=== PATIENT | female | born 1940 | race Caucasian/White ===

== ENCOUNTER 2020-07-08 11:42 | Inpatient (IN) ==
[2020-07-08] MEDS ORDERED: Famotidine 20 MG/2 ML VIAL IVP ONE (12:18)
[2020-07-08] MEDS ORDERED: Acetaminophen IV 1,000 MG/100 ML BAG IVPB ONE (12:18)
[2020-07-08] MEDS ORDERED: Ondansetron 4 MG/2 ML VIAL IVP PRN ×2 (12:19→18:21)
[2020-07-08] MEDS ORDERED: *HR* HYDROmorphone PF 0.5 MG/0.5 ML SYRINGE IVP PRN (12:19)
[2020-07-08] MEDS ORDERED: *HR* Labetalol 20 MG/4 ML SYRINGE IVP PRN (12:19)
[2020-07-08] MEDS ORDERED: cefOXitin 2,000 MG in Water for inj. (sterile) 20 ML IVP ONE (12:21)
[2020-07-08] MEDS ORDERED: Ringers Solution, Lactated 1,000 ML IVC SCH (12:30)
[2020-07-08] MEDS ORDERED: *HR* Propofol 200 MG/20 ML VIAL IVP ONE ×3 (13:15→13:52)
[2020-07-08] MEDS ORDERED: *HR* Rocuronium Bromide 50 MG/5 ML VIAL ONE (13:18)
[2020-07-08] MEDS ORDERED: Lidocaine -MPF 2% 2 ML VIAL ONE ×2 (13:18→13:53)
[2020-07-08] MEDS ORDERED: *HR* FentaNYL (PF) 100 MCG/2 ML VIAL ONE (13:51)
[2020-07-08] MEDS ORDERED: Ondansetron 4 MG/2 ML VIAL ONE (15:20)
[2020-07-08] MEDS ORDERED: Sugammadex Sodium 200 MG/2 ML VIAL IV ONE (16:53)
[2020-07-08] MEDS ORDERED: Naloxone 0.4 MG/ML INJ IVP PRN (18:21)
[2020-07-08] MEDS: Acetaminophen IV 1,000 MG/100 ML BAG IVPB SCH (19:00)
[2020-07-08] MEDS: 0.9 % Sodium Chloride 1,000 ML IVC SCH (19:00)
[2020-07-08] MEDS: Ketorolac 15 MG/ML VIAL IVP SCH (19:01)
[2020-07-08] MEDS: *HR* Heparin 5,000 UNIT/ML VIAL SQ SCH ×2 (19:01→19:32)
[2020-07-09] MEDS: Ketorolac 15 MG/ML VIAL IVP SCH ×5 (00:11→23:59)
[2020-07-09] MEDS: Acetaminophen IV 1,000 MG/100 ML BAG IVPB SCH ×5 (00:11→23:59)
[2020-07-09 02:24] LABS: Basophils % 0.1 %; Hematocrit 34.9 % (35.3-44.9); Hemoglobin 11.6 g/dL (11.5-15.4); Immature Granulocytes % 0.3 % (0-4); Lymphocytes # 1.1 K/mcL (0.6-4.6); Lymphocytes % 11.5 %; Mean Corpuscular HGB Conc 33.2 g/dL (31.6-35.5); Mean Corpuscular Hemoglobin 31.3 pg (28.0-33.3); Mean Corpuscular Volume 94.1 fL (83.0-100.0); Mean Platelet Volume 9.3 fL (9.4-12.4); Monocytes # 0.2 K/mcL (0.0-1.3); Monocytes % 2.1 %; Platelet Count 269 K/mcL (140-400); Red Blood Count 3.71 M/mcL (3.82-4.97); Red Cell Distribution Width 14.1 % (11.5-14.5); White Blood Count 9.3 K/mcL (4.3-11.1)
[2020-07-09 02:39] LABS: BUN/Creatinine Ratio 6 (6-26); Blood Urea Nitrogen 4 mg/dL (8-23); Carbon Dioxide 21 mEq/L (23-29); Chloride 102 mEq/L (98-107); Glucose 155 mg/dL (70-105); Osmolality,Calculated 274 (280-300); Potassium 3.6 mEq/L (3.5-5.1); Sodium 132 mEq/L (136-145); eGFR For African Americans > 60 (> 60); eGFR For Non-African Americans > 60 (> 60)
[2020-07-09] MEDS: *HR* Heparin 5,000 UNIT/ML VIAL SQ SCH ×2 (05:37→17:41)
[2020-07-09] MEDS: 0.9 % Sodium Chloride 1,000 ML IVC SCH (06:03)
[2020-07-09] MEDS: Pantoprazole 40 MG VIAL IVP SCH (11:57)
[2020-07-09] MEDS: amLODIPine 5 MG TABLET PO SCH (11:58)
[2020-07-09] MEDS: Acyclovir 200 MG CAPSULE PO SCH (20:09)
[2020-07-10] MEDS: Ketorolac 15 MG/ML VIAL IVP SCH ×2 (05:47→14:40)
[2020-07-10] MEDS: Acetaminophen IV 1,000 MG/100 ML BAG IVPB SCH ×2 (05:47→14:39)
[2020-07-10] MEDS: *HR* Heparin 5,000 UNIT/ML VIAL SQ SCH (05:48)
[2020-07-10 06:46] LABS: Basophils % 0.3 %; Eosinophils % 0.5 %; Hematocrit 30.4 % (35.3-44.9); Immature Granulocytes % 0.3 % (0-4); Lymphocytes # 2.6 K/mcL (0.6-4.6); Lymphocytes % 29.6 %; Mean Corpuscular HGB Conc 32.2 g/dL (31.6-35.5); Mean Corpuscular Hemoglobin 30.2 pg (28.0-33.3); Mean Corpuscular Volume 93.5 fL (83.0-100.0); Mean Platelet Volume 9.4 fL (9.4-12.4); Monocytes # 0.6 K/mcL (0.0-1.3); Monocytes % 6.9 %; Neutrophils # 5.4 K/mcL (1.6-8.9); Platelet Count 258 K/mcL (140-400); Red Blood Count 3.25 M/mcL (3.82-4.97); Red Cell Distribution Width 14.4 % (11.5-14.5); Segmented Neutrophils % 62.4 %; White Blood Count 8.7 K/mcL (4.3-11.1)
[2020-07-10 06:47] LABS: Hemoglobin 9.8 g/dL (11.5-15.4)
[2020-07-10 07:08] LABS: BUN/Creatinine Ratio 7 (6-26); Blood Urea Nitrogen 5 mg/dL (8-23); Calcium 8.7 mg/dL (8.6-10.3); Carbon Dioxide 23 mEq/L (23-29); Chloride 103 mEq/L (98-107); Glucose 91 mg/dL (70-105); Magnesium 1.5 mg/dL (1.6-2.6); Osmolality,Calculated 273 (280-300); Phosphorous 2.5 mg/dL (2.7-4.5); Potassium 3.3 mEq/L (3.5-5.1); Sodium 133 mEq/L (136-145); eGFR For African Americans > 60 (> 60); eGFR For Non-African Americans > 60 (> 60)
[2020-07-10] MEDS ORDERED: Potassium Phosphate 44 MEQ in 0.9 % Sodium Chloride 250 ML IVPB ONE (07:17)
[2020-07-10] MEDS: amLODIPine 5 MG TABLET PO SCH (07:36)
[2020-07-10] MEDS: Pantoprazole 40 MG VIAL IVP SCH (07:36)
[2020-07-10] MEDS: Acyclovir 200 MG CAPSULE PO SCH (07:36)
[2020-07-10] MEDS ORDERED: Furosemide 20 MG TABLET PO SCH (09:00)
[2020-07-10] MEDS ORDERED: Potassium Chloride Elixir 20 MEQ/15 ML UDC PO SCH (09:00)
[2020-07-10] MEDS ORDERED: lisinopriL 20 MG TABLET PO SCH (09:00)
[2020-07-10 16:01] VITALS: BP 148/68
== END 2020-07-10 17:00 | disposition home or self-care (01) | DRG 331 ==
LOC: SAMDAY 11:42 → 3ANU 18:15
PROVIDERS: ADMIT Surgery; ATTEND Surgery